=== PATIENT | female | born 1945 | race Caucasian/White ===

== ENCOUNTER 2021-04-07 12:17 | Outpatient (CLI) | payer MEDICARE, BC | END 2021-04-07 12:18 | disposition home or self-care (01) | LOC: TBSIIMAG 12:17 | PROVIDERS: ATTEND Neurological Surgery | DX: M47.26 Other spondylosis with radiculopathy, lumbar region (principal); M41.9 Scoliosis, unspecified; Z98.890 Other specified postprocedural states | CPT/HCPCS: 72100 ==